=== PATIENT | male | born 1990 | race Hispanic/Latino ===

== ENCOUNTER 2021-11-01 07:30 | Day surgery (SDC) | payer OTHER ==
[2021-10-30 13:42] VITALS: BP 134/71
[~2021-11-01] VITALS: Ht 172.7 cm; Wt 85.4 kg
[2021-11-01] VITALS (17 sets, daily range): BP systolic 85–133; BP diastolic 41–75
[~2021-11-01 07:30] MED LIST: FEXO180T94 PO; MULT-1203 PO
[2021-11-01] MEDS ORDERED: LACTATED RINGERS 1000ML 1,000 ML IV ONE (07:52)
[2021-11-01] MEDS: GENTAMICIN 80 MG/NS 100 ML PB 100 ML IV SCH ×2 (08:00→09:15)
[2021-11-01] MEDS ORDERED: PROPOFOL 10 MG/ML 20ML VIAL IV ONE (09:29)
[2021-11-01] MEDS ORDERED: MIDAZOLAM HCL 1 MG/ML 2ML VIAL ONE (09:29)
[2021-11-01] MEDS ORDERED: FENTANYL CITRATE PF 50 MCG/1 ML 2ML VIAL ONE ×2 (09:29→10:17)
[2021-11-01] MEDS ORDERED: GLYCOPYRROLATE 1 MG/5 ML SYRINGE ONE (09:41)
[2021-11-01] MEDS ORDERED: BUPIVACAINE/PF 0.25% 30ML VIAL IJ ONE (09:42)
[2021-11-01] MEDS ORDERED: BACITRACIN 28.4 GM OINT TP ONE (09:42)
[2021-11-01] MEDS ORDERED: MEPERIDINE-PF 25 MG/ML SYG ONE (11:13)
== END 2021-11-01 12:45 | disposition home or self-care (01) ==
LOC: DAH 07:30
PROVIDERS: ATTEND Urology
DX: Z30.2 Encounter for sterilization (principal); N47.1 Phimosis; L80 Vitiligo; Z79.01 Long term (current) use of anticoagulants; Z88.0 Allergy status to penicillin; Z80.42 Family history of malignant neoplasm of prostate
CPT/HCPCS: 54161; 55250; 87635; A4215; A4221; A4222; A4223; A4600; A4663; C9803; J1580 ×2; J2175; J2250; J2704; J3010 ×2; J3490 ×2; J7120